=== PATIENT | male | born 1965 | race Caucasian/White ===

== ENCOUNTER 2024-05-06 19:42 | Emergency (ER) | payer OTHER, SELFPAY ==
[2024-05-06 19:56] VITALS: BP 150/84; PULSE 85; RESP 20; TEMP 36.8; O2SAT 99; BMI 33.1
--- NOTE | 2024-05-06 20:08 | ED.GENADULT ---
HPI - General Adult General Chief complaint: Extremity Pain/Injury, Lower Stated complaint: left leg pain Time Seen by Provider: 05/06/24 19:43 History of Present Illness HPI narrative: This 58-year-old male is Bulgarian-speaking so automotive parts interpreter services were implied. He is reporting pain from his low back radiating all way down his low left leg. He does not report any particular injury event or strenuous activity. He states that he has had similar symptoms in the past that radiated down the right leg. He did have a surgery to correct this problem. His current symptoms started in the past week or 2. He does not have any saddle anesthesia or altered bowel or urine function. Related Data Home Medications ?Medication ?Instructions ?Recorded ?Confirmed aspirin 81 mg tablet,delayed 81 mg PO DAILY 05/06/24 05/06/24 release atorvastatin 80 mg tablet 80 mg PO QPM 05/06/24 05/06/24 celecoxib 200 mg capsule 200 mg PO DAILY 05/06/24 05/06/24 glipizide 10 mg tablet 10 mg PO BID 05/06/24 05/06/24 lisinopril 10 mg tablet 10 mg PO DAILY blood pressure 05/06/24 05/06/24 metformin 500 mg tablet 1,000 mg PO BID 05/06/24 05/06/24 Previous Rx's ?Medication ?Instructions ?Recorded methylprednisolone 4 mg tablets in See Rx Instructions PO .COMPLEX 05/06/24 a dose pack (Medrol (Lc)) #21 ea Allergies Allergy/AdvReac Type Severity Reaction Status Date / Time No Known Drug Allergies Allergy Verified 05/06/24 20:00 Review of Systems Status of ROS: Reports: 10 or more systems reviewed and unremarkable except as noted in History and below Narrative: Constitutional: No fevers, no weight gain or loss. Eyes: No discharge. No vision changes. HENT: No congestion, no sore throat, no ear pain. Cardiovascular: No chest pain, no palpitations. Respiratory: No shortness of breath, no wheezes, no cough. Gastrointestinal: No abdominal pain, no vomiting, no diarrhea. Genitourinary: No dysuria, no hematuria. Musculoskeletal: Normal range of motion. Skin: No rashes, no pruritis. Neurological: No dizziness, weakness, sensory change, speech change. Endo/Heme/Allergies: No bruising or bleeding. No polydipsia. Pysch: no suicidality, no anxiety, no insomnia. All other systems reviewed and are negative. Exam Narrative: Exam Narrative: Constitutional: Well-developed, well-nourished, no acute distress. HEENT: Normocephalic, atraumatic. Neck: Normal range of motion. Nontender. Supple. Heart: Intact distal pulses. Lungs: No chest discomfort. No wheezes, rhonchi, or rales. Abdomen: Nontender. Back: Normal range of motion. Diffuse low back pain radiating down the whole left leg. Extremities: Normal range of motion. No injury. No unilateral swelling or sign of injury. Skin: Intact. No rash. Warm. No erythema or pallor. Neurologic: No altered sensation. No weakness. Alert and oriented. Psychiatric: No suicidality. No anxiety or depression. No insomnia. Nursing notes and vitals signs are reviewed. Const: Vital Signs, click to edit/add: Vital Signs - 24 hr 05/06/24 19:56 Temperature 98.2 F Pulse Rate [Right Pulse Oximeter] 85 Respiratory Rate 20 Blood Pressure [Ri ght Upper Arm] 150/84 H Pulse Oximetry 99 Oxygen Delivery Me thod Room Air Course Vital Signs Vital signs: Initial Vital Signs Temperature 98.2 F 05/06/24 19:56 Temperature Source Temporal Artery Scan 05/06/24 19:56 Pulse Rate 85 05/06/24 19:56 Respiratory Rate 20 05/06/24 19:56 Blood Pressure 150/84 H 05/06/24 19:56 Blood Pressure Mean 106 H 05/06/24 19:56 Blood Pressure Position Sitting 05/06/24 19:56 Pulse Oximetry 99 05/06/24 19:56 Oxygen Delivery Method Room Air 05/06/24 19:56 Vital Signs Temperature 98.2 F 05/06/24 19:56 Pulse Rate 85 05/06/24 19:56 Respiratory Rate 20 05/06/24 19:56 Blood Pressure 150/84 H 05/06/24 19:56 Pulse Oximetry 99 05/06/24 19:56 Oxygen Delivery Method Room Air 05/06/24 19:56 Temperature 98.2 F 05/06/24 19:56 Pulse Rate 85 05/06/24 19:56 Respiratory Rate 20 05/06/24 19:56 Blood Pressure 150/84 H 05/06/24 19:56 Pulse Oximetry 99 05/06/24 19:56 Oxygen Delivery Method Room Air 05/06/24 19:56 Medical Decision Making MDM Narrative Medical decision making narrative: This 58-year-old male has symptoms typical of a lumbar radiculopathy. He did not have any specific injury event that would mandate imaging studies at this time. He has been through these circumstances in the past with a surgical correction of a right-sided lumbar radiculopathy. The patient received an oral dose of dexamethasone 10 mg. He does have diabetes and understands that his blood glucose will go because of this treatment. He is encouraged to follow-up with a spine clinic for ongoing management. I provided the phone number to arrange the appointment if desired. He received [facility] prescriptions for Toradol and Flexeril. I did also provide a prescription for Medrol Dosepak from his preferred pharmacy. Discharge Plan Discharge Clinical Impression: Acute left lumbar radiculopathy Patient Disposition: Home, Self-Care Condition: Stable Additional Instructions: Take medications as needed and indicated. Follow-up with spine clinic and call for appointment by dialing [phone]. Return if worsening. Prescriptions: New methylprednisolone [Medrol (Lc)] 4 mg tablets,dose pack See Rx Instructions .ROUTE .COMPLEX Qty: 21 0RF Rx Instructions: orally per package directions No Action celecoxib 200 mg capsule 200 mg PO DAILY atorvastatin 80 mg tablet 80 mg PO QPM glipizide 10 mg tablet 10 mg PO BID aspirin 81 mg tablet,delayed release (DR/EC) 81 mg PO DAILY metformin 500 mg tablet 1,000 mg PO BID lisinopril 10 mg tablet 10 mg PO DAILY Stand Alone Forms: [email or web address] Info Instructions
[2024-05-06] MEDS: dexAMETHasone 10 MG/ML inj PO (20:27)
[2024-05-06 20:33] VITALS: BP 145/78; PULSE 85; RESP 20; TEMP 36.8; O2SAT 99
[2024-05-06 20:34] VITALS: BP 145/78; PULSE 85; RESP 20; TEMP 36.8
== END 2024-05-06 20:35 | disposition home or self-care (01) ==
LOC: ED 20:28
PROVIDERS: Emergency Provider Emergency Medicine Emergency Medical Services
DX: M54.16 Radiculopathy, lumbar region (principal)
CPT/HCPCS: 99283; 99284; J1100

== ENCOUNTER 2025-05-22 17:07 | Emergency (ER) | payer OTHER, SELFPAY ==
--- OUTSIDE RECORDS SUMMARY | 2025-05-22 17:11 | XMS_ITS | Clinical Summary ---
Author Organization [facility] Address [address] [place] [id number] Care Team Providers Care Analytics Director Name Role Phone Milli Wooten MD Primary Care Prov ider Allergies No known active allergies Medications WalkerIndications: Lumbar disc herniation,Spinal stenosis, lumbar region, with neurogenic claudication,Posto perative pain after spinal surgery Walker with front wheels for home use. 12 weeks 1 Device 01/15/20 19 Active pyridoxine, vitamin B6, (VITAMIN B6) 25 mg tabletIndications: TB lung, latent Take 1 Tablet (25 mg) by mouth once daily. 90 Tablet 2 08/28/19 22 Active triamcinolone (ARISTOCORT; KENALOG) 0.1 % creamIndications:G eneralized maculopapular rash APPLY A THIN LAYER TO THE AFFECTED AREA(S) BY TOPICAL ROUTE 2 TIMES PER DAY 45 g 1 03/19/20 22 Active blood-glucose meterIndications:T ype 2 diabetes mellitus without complication, with long-term current use of insulin (HC) Dispense meter, test strips, lancets covered by pt ins. E11.65 NIDDM type II, uncontrolled - Test 2 times/day. Reason: High A1C 1 Kit 01/15/20 24 Active aspirin (ECOTRIN) 81 mg enteric coated tabletIndications: Type 2 diabetes mellitus without complication, with long-term current use of insulin (HC) Take 1 Tablet (81 mg) by mouth once daily with a meal. 90 Tablet 3 01/15/20 24 Active traMADoL (ULTRAM) 50 mg tabletIndications: Primary osteoarthritis of right hip Take 1 Tablet (50 mg) by mouth 3 times daily if needed for Pain. 36 Tablet 1 02/26/20 24 Active atorvastatin (LIPITOR) 80 mg tabletIndications: Type 2 diabetes mellitus with diabetic microalbuminuria, with long-term current use of insulin (HC),Mixed hyperlipidemia Take 1 Tablet (80 mg) by mouth at bedtime. 90 Tablet 3 03/30/20 24 Active glipiZIDE (GLUCOTROL) 10 mg tabletIndications: Type 2 diabetes mellitus with diabetic microalbuminuria, with long-term current use of insulin (HC) Take 1 Tablet (10 mg) by mouth two times daily before meals. Take 30 minutes before the meal. 180 Tablet 3 03/30/20 24 Active metFORMIN (GLUCOPHAGE) 500 mg tabletIndications: Type 2 diabetes mellitus with diabetic microalbuminuria, with long-term current use of insulin (HC) Take 2 Tablets (1,000 mg) by mouth two times daily with meals. 360 Tablet 3 03/30/20 24 Active celecoxib (CELEBREX) 200 mg capsuleIndications :Spinal stenosis, lumbar region, with neurogenic claudication Take 1 Capsule (200 mg) by mouth once daily with a meal. 30 Capsule 2 04/29/20 24 Active blood-glucose meterIndications:T ype 2 diabetes mellitus with diabetic microalbuminuria, with long-term current use of insulin (HC) Dispense meter covered by pts insurance. 1 Each 05/23/20 24 Active blood sugar diagnostic (Blood Glucose Test) stripIndications:T ype 2 diabetes mellitus with diabetic microalbuminuria, with long-term current use of insulin (HC) Dispense item covered by pt ins. E11.65 NIDDM type II, uncontrolled - Test 4 times/day. Reason: High A1C 200 Each 05/23/20 Active lancetsIndications :Type 2 diabetes mellitus with diabetic microalbuminuria, with long-term current use of insulin (HC) Dispense item covered by pt ins. E11.65 NIDDM type II, uncontrolled - Test 4 times/day. Reason: High A1C 200 Each 05/23/20 24 Active gabapentin (NEURONTIN) 100 mg capsuleIndications :Spinal stenosis of lumbar region with radiculopathy Take 1 Capsule (100 mg) by mouth three times daily. 90 Capsule 2 05/23/20 24 Active amoxicillin 500 mg capsule Take 1 Capsule by mouth two times daily. 09/21/19 25 Active omeprazole (PRILOSEC) 20 mg Delayed-Release capsule TAKE ONE CAPSULE(20MG) BY MOUTH EVERY DAY FOR 14 DAYS 09/21/19 25 Active Basaglar KwikPen U-100 Insulin 100 unit/mL (3 mL) penIndications:Typ e 2 diabetes mellitus with diabetic microalbuminuria, with long-term current use of insulin (HC) Inject 48 units subcutaneous before bedtime. Product desired: BASAGLAR KWIKPEN, direct relief program 12 Each 3 11/02/19 25 Active insulin lispro (U-100) 100 unit/mLIndications :Type 2 diabetes mellitus with diabetic microalbuminuria, with long-term current use of insulin (HC) Inject 4 units subcutaneous three times daily before meals. Increase by 3 units every 3 days for BG>130. Product desired: HUMALOG KWIKPEN, direct relief program 12 Pen 3 11/02/19 25 Active insulin syringe-needle U-100 0.3 mL 30 gauge x 1/2Indications:Ty pe 2 diabetes mellitus without complication, with long-term current use of insulin (HC) As directed. For administering insulin at home. 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 De Quervain's tenosynovitis, right 06/11/2014 Sciatica of left side without back pain 06/09/20 14 Diabetes mellitus, type 2 08/15/2011 Resolved Problems Problem Noted Date Diagnosed Date Resolved Date Diabetic neuropathy, type II diabetes mellitus 08/07/2011 07/05/2012 Overview (08/07/2011): Dx Jul 2011 Encounters Date Type Department Care Team Description 03/20/2025 3:15 PM CDT Orders Only [facility] [address] [facility] [address] Randi Palomares <No scans attached> 03/20/2025 2:00 PM CDT Patient Outreach [address] [address] Kinza Núñez hearing care practitioner (assessment) 03/20/2025 Travel from Last 3 Months Immunizations Immunization Administration Dates Next Due COVID-19 vaccine (Pfizer-Bio NTech 30mcg/0.3mL) PF, MDV 08/16/2021,11/13/2020,10/23/2020 Influenza RIV4 (Age 18+ Years) PRESERV FREE 05/28 Influenza, IIV3 (Age >=3 years) 08/26/2013 Influenza, IIV4 08/05/2019,08/27/2018,05/08/2014 Td (Age >=7 Years) 07/27/2002 Tdap 08/26/2013 Tuberculin (PPD) 08/20/2021 Social History Tobacco Use Types Packs/Day Years Used Date Smoking Tobacco: Every Day Cigarettes Smokeless Tobacco: Never Tobacco Cessation:Ready to Q uit: No; Counseling Given: Yes Comments:let him know Dr. Lambert can assist him Alcohol Use Standard Drinks/Week Comments Yes 0 (1 standard drink = 0.6 oz pur e alcohol) 7-8 beers weekly. PHQ-2 Answer Date Recorded PHQ-2 TOTAL SCORE 2 08/26/2021 Social Connections Answer Date Recorded Do you often feel lonely or isolated from those around you? 0 10/15/2023 Financial Resource Strain Answer Date R ecorded Difficulty of Paying Living Expenses 1 10/15/2023 Difficulty of Paying Living Expenses 2 10/15/2023 Food Insecurity Answer Date Recorded Do you worry your food will run out before you are able to buy more? 2 10/15/2023 Transportation Needs Answer Date Record ed Does lack of transportation keep you from medica l appointments? 1 10/15/2023 Does lack of transportation keep you from work, meetings or getting things that you need? 1 10/15/2023 Housing Stability Answer Date Recorded What is your housing situation today? 2 10/15/2023 Utilities Answer Date Recorded Do you have trouble paying f or utilities (for example, heat, electricity, water, phone)? 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 Gender Identity Not on file Sexual Orientation Not on file Obstetrics History Last Filed Vital Signs Vital Sign Reading Time Taken Comments Blood Pressure 122/68 10/31/2024 4:17 PM CDT Pulse 105 10/31/2024 3:23 PM CDT Temperature 37.1 C (98.7 F) 09/29/2024 8:52 AM DINKEY LOCOMOTIVE ENGINEER Respiratory Rate 16 01/14/2019 7:48 AM CDT Oxygen Saturation 97% 10/31/2024 3:2 3 PM CDT Inhaled Oxygen Concentration - - Weight 90.4 kg (199 lb 6.4 oz) 09/29/2024 8:52 AM DINKEY LOCOMOTIVE ENGINEER boots and winter coat on Height 169.5 cm (5' 6.73) 10/15/2023 1 :50 PM CDT Body Mass Index 31.48 10/15/2023 1:50 PM CDT Plan of Treatment Health Maintenance Due Date Last Done Comments Depression screening for age 12+ 1976 Pneumococcal series for age 50+ (1 of 2 - PCV) 12/05/1983 Colonoscopy through age 75 2009 Zoster (shingles) series for age 50+ (1 of 2) 2014 Tetanus booster 08/26/2023 08/26/2013, 07/27/2002 BMI (ht and wt on same day) for age 18+ 10/14/2024 10/15/2023, 02/26/2022, 07/23/2019, Additional history exists RSV vaccine for adults or (1 - Risk 60-74 years 1-dose series) 2024 COVID-19 vaccine series ( season) 2025 08/16/2021, 11/13/2020, 10/23/2020 Influenza Vaccine (#1) 2025 , 08/05/2019, 08/27/2018, Additional history exists Lipids for age 45-75 04/29/2029 04/29/2024, 01/15/2024, 01/15/2024, Additional history exists HIV for age 15-65 Completed 08/26/2021 Hepatitis C screening for age 18-79 Completed 11/13/2021 Hepatitis B series for 19+ Aged Out N o longer eligible based on patient's age to complete this topic Procedures Procedure Name Priority Date/Time Associated Diagnosis Comments HEMOGLOBIN A1C Routine 03/20/2025 3:24 PM CDT Type 2 diabetes mellitus with diabetic microalbuminuria, with long-term current use of insulin (HC) LIPID PANEL Routine 04/29/2024 1:06 PM CDT Type 2 diabetes mellitus with diabetic microalbuminuria, with long-term current use of insulin (HC) Mixed hyperlipidemia ANTI HCV Routine 11/13/2021 3:33 PM CDT Need for hepatitis C screening test ANTI HIV 1/2 Routine 08/26/2021 3:29 PM DINKEY LOCOMOTIVE ENGINEER [place]: positive TB lung, latent from Last 3 Months or Most Recently Relevant to Health Maintenance Results * (ABNORMAL) HEMOGLOBIN A1C (03/20/2025 3:24 PM CDT) HEMOGLOBIN A1C 12.0(H) <5.7 % 03/21/2025 4:25 AM CDT [email or web address] Comment: For someone without known diabetes, a hemoglobin A1c value of 6.5% or greater indicates that they may have diabetes and this should be confirmed with a follow-up test. For someone with known diabetes, a value <7% indicates that their diabetes is well controlled and a value greater than or equal to 7% indicates suboptimal control. A1c targets should be individualized based on duration of diabetes, age, comorbid conditions, and other considerations. Currently, no consensus exists regarding use of hemoglobin A1c for diagnosis of diabetes for children. Blood BLOOD SPECIMEN / Unknown [facility] / Unknown 03/20/2025 3:24 PM CDT 03/20/2025 3:25 PM CDT us Milli Wooten MD CHEMISTRY Fi nal Result [email or web address] [address] [id number] [place] [address], * (ABNORMAL) LIPID PANEL (04/29/2024 1:06 PM CDT) CHOLESTEROL, TOTAL 149 <200 mg/dL [facility] HDL CHOLESTEROL 51 > OR = 40 mg/dL [facility] TRIGLYCERIDES 227(H) <150 mg/dL [facility] Comment: If a non-fasting specimen was collected, consider repeat triglyceride testing on a fasting specimen if clinically indicated. Padmini et al. J. of Clin. Lipidol. 2015;9:129-169. LDL-CHOLESTEROL 70 mg/dL (calc) [facility] Comment: Reference range: <100 Desirable range <100 mg/dL for primary prevention; <70 mg/dL for patients with CHD or diabetic patients with > or = 2 CHD risk factors. LDL-C is now calculated using the Viki calculation, which is a validated novel method providing better accuracy than the Friedewald equation in the estimation of LDL-C. Yonathan SS et al. FLOR. 2013;310(19): 1262-6974 (http://education.DentLight/faq/IYC168) CHOL/HDLC RATIO 2.9 <5.0 (calc) [facility] NON HDL CHOLESTEROL 98 <130 mg/dL (calc) [facility] Comment: For patients with diabetes plus 1 major ASCVD risk factor, treating to a non-HDL-C goal of <100 mg/dL (LDL-C of <70 mg/dL) is considered a therapeutic option. Blood BLOOD SPECIMEN / Unknown 04/29/2024 1:06 PM CDT 04/29/2024 1:07 PM CDT Narrative [email or web address] - 04/30/2024 6:17 AM CDT FASTING:UNKNOWN FASTING: UNKNOWN us Milli Wooten MD CHEMISTRY Fi nal Result [email or web address] [facility] [address] [place] [address], [facility] [address] [place] [address] * ANTI HCV (11/13/2021 3:33 PM CDT) HEPATITIS C ANTIBODY Non-React brayan Non-React brayan 11/14/2021 12:52 AM CDT [facility] Comment:Antibodies to HCV no t detected; does not exclude the possibility of exposure to HCV. Blood BLOOD SPECIMEN / Unknown Venipuncture / Unknown 11/13/2021 3:33 PM CDT 11/13/2021 3:34 PM CDT us Kiarra Nicole Detert DO SEND OUTS Final Resul t [facility] [address] [place] [address], * ANTI HIV 1/2 (08/26/2021 3:29 PM DINKEY LOCOMOTIVE ENGINEER) Pathologist [facility] HIV-1/HIV-2 ANTIBODY Non-Reacti ve Non-Reacti ve 08/26/2021 8:35 PM DINKEY LOCOMOTIVE ENGINEER [facility] Comment:HIV-1 p24 and HIV-1/ HIV-2 Ab not detected. Blood BLOOD SPECIMEN / Unknown Venipuncture / Unknown 08/26/2021 3:29 PM DINKEY LOCOMOTIVE ENGINEER 08/26/2021 3:30 PM DINKEY LOCOMOTIVE ENGINEER us Kiarra Nicole Detert DO SEND OUTS Final Resul t Performing Organization Address City/[facility]/ZIP Co de Phone Number [facility] [address] [place] [address], from Last 3 Months or Most Recently Relevant to Health Maintenance Advance Directives * Full Code (Latest Code Status on File) Date Activated Date Inactivated Comments 01/13/2019 4:29 PM 01/14/2019 5:07 PM Care Teams Analytics Director Relationship Specialty Start Date End Date Milli Wooten MD PCP - General Family Practice 05/23/24
[2025-05-22 17:35] VITALS: BP 109/88; PULSE 106; RESP 18; TEMP 36.1; O2SAT 97
--- NOTE | 2025-05-22 18:07 | ED.SKABFB ---
HPI - Skin/Abscess/Foreign Bdy General Chief complaint: Skin/Abscess/Foreign Body Stated complaint: upper lip swollen Time Seen by Provider: 05/22/25 17:59 History of Present Illness HPI narrative: This 59-year-old male was sent here from urgent care because of swelling and pain in the left upper lip. He states that this began a couple days ago. There is erythema and on the inner aspect of the lip there is some skin breakdown but no sign of active drainage. He is missing his front upper teeth and this part of his lip where there is swelling and injury is repeatedly contacting the next tooth likely contributing to these symptoms. Related Data Home Medications ?Medication ?Instructions ?Recorded ?Confirmed aspirin 81 mg tablet,delayed 81 mg PO DAILY 05/06/24 05/22/25 release atorvastatin 80 mg tablet 80 mg PO QPM 05/06/24 05/22/25 celecoxib 200 mg capsule 200 mg PO DAILY 05/06/24 05/22/25 glipizide 10 mg tablet 10 mg PO BID 05/06/24 05/22/25 lisinopril 10 mg tablet 10 mg PO DAILY blood pressure 05/06/24 05/22/25 metformin 500 mg tablet 1,000 mg PO BID 05/06/24 05/22/25 Previous Rx's ?Medication ?Instructions ?Recorded amoxicillin 875 mg-potassium 1 tab PO BID #14 tabs 05/22/25 clavulanate 125 mg tablet tramadol 50 mg tablet 50 mg PO Q6H PRN pain #10 tabs 05/22/25 Allergies Allergy/AdvReac Type Severity Reaction Status Date / Time No Known Drug Allergies Allergy Verified 05/22/25 15:33 Review of Systems Status of ROS: Reports: 10 or more systems reviewed and unremarkable except as noted in History and below Narrative: Constitutional: No fevers, no weight gain or loss. Eyes: No discharge. No vision changes. HENT: No congestion, no sore throat, no ear pain. Cardiovascular: No chest pain, no palpitations. Respiratory: No shortness of breath, no wheezes, no cough. Gastrointestinal: No abdominal pain, no vomiting, no diarrhea. Genitourinary: No dysuria, no hematuria. Musculoskeletal: Normal range of motion. Skin: No rashes, no pruritis. Neurological: No dizziness, weakness, sensory change, speech change. Endo/Heme/Allergies: No bruising or bleeding. No polydipsia. Pysch: no suicidality, no anxiety, no insomnia. All other systems reviewed and are negative. [facility] Medical History Hyperlipidemia ?E78.5 - Hyperlipidemia, unspecified (ICD-10) Hypertension ?I10 - Essential (primary) hypertension (ICD-10) Diabetes mellitus, type 2 ?E11.9 - Type 2 diabetes mellitus without complications (ICD-10) Social History Smoking Status: Never smoker Second hand tobacco smoke exposure: No How often do you have a drink containing alcohol: never AUDIT-C Alcohol total score: 0 Non-prescribed substance use: denies use Exam Narrative: Exam Narrative: Constitutional: Well-developed, well-nourished, no acute distress. HEENT: The left side of the upper lip has significant swelling with erythema and tenderness. The inner aspect of the lip in this area has some skin breakdown but no sign of drainage. This is the part of the lip that is repeatedly coming up against a tooth. The medial to this area there are no teeth in his upper row so there is extra trauma coming to his upper lip in this area. Neck: Normal range of motion. Nontender. Supple. Heart: Regular. No murmurs. Normal rate. Intact distal pulses. Lungs: Clear to auscultation. No chest discomfort. No wheezes, rhonchi, or rales. Abdomen: Normal bowel sounds. Nontender. No rebound tenderness. Genitalia: Deferred. Back: No midline tenderness. Normal range of motion. Extremities: Normal range of motion. No injury. Skin: Intact. No rash. Warm. No erythema or pallor. Neurologic: No altered sensation. No weakness. Alert and oriented. Psychiatric: No suicidality. No anxiety or depression. No insomnia. Nursing notes and vitals signs are reviewed. Const: Vital Signs, click to edit/add: Vital Signs - 24 hr 05/22/25 17:35 Temperature 97.0 F L Pulse Rate [Right Pulse Oximeter] 106 H Respiratory Rate 18 Blood Pressure [Ri ght Upper Arm] 109/88 Pulse Oximetry 97 Oxygen Delivery Me thod Room Air Course Vital Signs Vital signs: Initial Vital Signs Temperature 97.0 F L 05/22/25 17:35 Temperature Source Temporal Artery Scan 05/22/25 17:35 Pulse Rate 106 H 05/22/25 17:35 Respiratory Rate 18 05/22/25 17:35 Blood Pressure 109/88 05/22/25 17:35 Blood Pressure Mean 95 05/22/25 17:35 Blood Pressure Position Sitting 05/22/25 17:35 Pulse Oximetry 97 05/22/25 17:35 Oxygen Delivery Method Room Air 05/22/25 17:35 Vital Signs Temperature 97.0 F L 05/22/25 17:35 Pulse Rate 106 H 05/22/25 17:35 Respiratory Rate 18 05/22/25 17:35 Blood Pressure 109/88 05/22/25 17:35 Pulse Oximetry 97 05/22/25 17:35 Oxygen Delivery Method Room Air 05/22/25 17:35 Temperature 97.0 F L 05/22/25 17:35 Pulse Rate 106 H 05/22/25 17:35 Respiratory Rate 18 05/22/25 17:35 Blood Pressure 109/88 05/22/25 17:35 Pulse Oximetry 97 05/22/25 17:35 Oxygen Delivery Method Room Air 05/22/25 17:35 MDM - Skin/Abscess/Foreign Bdy MDM Narrative Medical decision making narrative: This patient has an infection in his upper lip related to trauma from the tooth in his mouth. There is no current drainage but the inner aspect of the lip could easily drain if needed. I do not see benefit in attempting to drain this by aspiration or incision as it is his upper lip And there is likely no drainable abscess. The patient did receive a prescription for Augmentin and some tablets of tramadol. I advised him to follow-up with his dentist for attention to his teeth and to relieve pressure on this area of his upper lip. Discharge Plan Discharge Clinical Impression: Abscess of skin or subcutaneous tissue Patient Disposition: Home, Self-Care Condition: Stable Additional Instructions: Take medication as prescribed. Follow-up with dentist and primary physician for ongoing management. Return if worsening. Prescriptions: New tramadol 50 mg tablet 50 mg PO Q6H PRN (Reason: pain) Qty: 10 0RF amoxicillin-pot clavulanate 875-125 mg tablet 1 tab PO BID Qty: 14 0RF No Action celecoxib 200 mg capsule 200 mg PO DAILY atorvastatin 80 mg tablet 80 mg PO QPM glipizide 10 mg tablet 10 mg PO BID aspirin 81 mg tablet,delayed release (DR/EC) 81 mg PO DAILY metformin 500 mg tablet 1,000 mg PO BID lisinopril 10 mg tablet 10 mg PO DAILY Follow Up/Referrals: Provider,Not a Local [Primary Care Provider, Family Practice] Stand Alone Forms: [employer] Info Instructions
== END 2025-05-22 18:31 | disposition home or self-care (01) ==
PROVIDERS: Emergency Provider Emergency Medicine Emergency Medical Services
DX: K13.0 Diseases of lips (principal)
CPT/HCPCS: 99283; 99284

== ENCOUNTER 2025-05-23 11:48 | Outpatient (CLI) | payer OTHER, SELFPAY | END 2025-05-23 11:49 | disposition home or self-care (01) | LOC: AMB 07-08 14:45 | PROVIDERS: Visit Provider Student in an Organized Health Care Education/Training Program | DX: I46.9 Cardiac arrest, cause unspecified (principal) ==